=== PATIENT | female | born 1960 | race African-American/Black ===

== ENCOUNTER 2016-11-23 07:54 | Emergency (ER) | payer MEDICARE, MEDICAID ==
[2016-11-23 09:04] LABS: ALT (SGPT) 10 U/L (0-55); AST (SGOT) 15 U/L (5-34); Alkaline Phosphatase 92 U/L (40-150); Anion Gap 16 mmol/L (10-20); BUN (Urea Nitrogen) 7 mg/dL (9.8-20.1); Bilirubin, Total 0.3 mg/dL (0.2-1.2); CK (CPK) 72 U/L (29-168); Calc. Creatinine Clearance 0 mL/min (70-130); Carbon Dioxide 23 mmol/L (22-29); Chloride 105 mmol/L (98-107); Estimated GFR-MDRD Greater than 90; Protein, Total 6.7 g/dL (6.0-8.3)
[2016-11-23 09:05] LABS: Hematocrit 45.3 % (36.0-47.0); Mean Platelet Volume 6.1 fL (7.4-10.4); Red Blood Cell (RBC) Count 5.02 mill/uL (4.20-5.40); White Blood Cell (WBC) Count 8.7 thou/uL (4.8-10.8)
--- NOTE | 2016-11-23 09:05 | RAD ---
PA CHEST WITH 3 VIEWS OF RIGHT CHEST WALL: Date: 11/23/16 INDICATION: Right-sided rib pain without injury earlier this morning. FINDINGS: The lungs are clear. No pleural effusion or pneumothorax is evident. No displaced right-sided rib fr acture is evident. IMPRESSION: No displaced right-sided rib fracture. POS: [facility]
[2016-11-23 09:06] LABS: Troponin I Less than 0.010 ng/mL (< 0.028)
[2016-11-23 09:10] LABS: Neutrophil 56 % (42-75); Reactive Lymphocytes 4 % (0-10)
[2016-11-23] MEDS ORDERED: Morphine Sulfate 2 MG/ML SYRINGE ONE (09:40)
[2016-11-23 09:41] LABS: Methamphetamine Not Detected (NotDetected)
[2016-11-23] MEDS ORDERED: Enoxaparin Sodium 80 MG/0.8 ML SYRINGE ONE (09:41)
[2016-11-23 09:42] LABS: Methadone Not Detected (NotDetected)
--- NOTE | 2016-11-23 09:51 | ERRECORD ---
[facility] EMERGENCY RECORD HPI CHEST PAIN CHIEF COMPLAINT: Patient presents for evaluation of chest pain, ongoing, Patient presents for evaluation of Pt with right sided chest and back pain. Started yesterday morning and progressively worse since. Hurts to move, take deep breaths, or palpation. Pt is crying in the room as she talks about the pain. She reports being unable to sleep due to the pain when she lies on her side or back. No injury. 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 Missed her last 2 days of xaralto. (08:43 JLOY) HISTORIAN: History provided by patient. (08:43 JLOY) LOCATION: Symptoms are localized, most severe in the right lower chest. (08:43 JLOY) QUALITY: Pain is dull in nature. (08:43 JLOY) TIME COURSE: Symptoms are worsening, are constant. (08:43 JLOY) ASSOCIATED WITH: No associated chills, No associated cough, No associated diaphoresis, No associated fever, No associated nausea, No associated palpitations, No associated shortness of breath, No associated trauma, No associated upper respiratory infection, No associated vomiting. (08:43 JLOY) RELIEVED BY: Patient's condition relieved by nothing. (08:43 JLOY) RISK FACTORS: Pulmonary embolism risk factors, include coagulation disorder, include prior deep vein thrombosis, include prior pulmonary embolism. (08:46 JLOY) ROS (08:47 JLOY) CONSTITUTIONAL: Historian denies chills, denies fever. ENT: Historian denies rhinorrhea, denies sore throat. CARDIOVASCULAR: Historian reports chest pain, denies diaphoresis, denies palpitations. RESPIRATORY: Historian denies cough, denies shortness of breath. GI: Historian denies abdominal pain, denies nausea, denies vomiting. Chronic diarrhea unchanged. GENITOURINARY FEMALE: Historian denies dysuria, denies frequency, denies hematuria. MUSCULOSKELETAL: Historian reports back pain. SKIN: Historian denies rash, denies skin changes. NEUROLOGIC: Historian reports dizziness, denies headache. PAST MEDICAL HISTORY MEDICAL HISTORY: Notes: 29 PE's per pt...LAST CLOT 3 YEARS AGO.... (08:13 [facility]) FEMALE SURGICAL HISTORY: ovarian cyst removed. (08:13 [facility]) PSYCHIATRIC HISTORY: No previous psychiatric history. (08:13 [facility]) &a-1R&a+25V*p+0X*[id number]*c202B*c15G*c2P*p-0X&a-25V&a+1R Name: Tia Sanchez : 1960 F56 MedRec: [id number] AcctNum: [id number] Prepared: WedNov 23, 2016 10:33 by Interface Page [address] [facility] EMERGENCY RECORD SOCIAL HISTORY: Social History includes lives with mom, Patient denies alcohol use, Patient denies drug use, Patient currently uses tobacco, smokes cigarettes, Patient smokes 1/2 packs per day. (08:13 [facility]) NOTES: Nursing records reviewed, Agree with nursing records. (08:49 [facility]) KNOWN ALLERGIES iodine CURRENT MEDICATIONS Xarelto: TABLET : Strength - 20 mg : ORAL Patient Dose: once a day. (08: [facility]) Ambien: TABLET : Strength - 10 mg : ORAL Patient Dose: once a day. (08: [facility]) atorvastatin: TABLET : Strength - 10 mg : ORAL Patient Dose: once a day (at bedtime). (08:27 [facility]) NexIUM: CAPSULE,DELAYED RELEASE (ENTERIC COATED) : Strength - 40 mg : ORAL Patient Dose: once a day. (08:27 [facility]) Xifaxan: TABLET : Strength - 200 mg : ORAL Patient Dose: 3 times a day. (08:27 [facility]) VITAL SIGNS VITAL SIGNS: BP: 162/100, Pulse: 74, Resp: 19, Temp: 98.2 (Oral), Pain: 10, O2 sat: 100 on Room Air, Time: 11/23/2016 08:06. (08:06 [facility]) BP: 133/93, Pulse: 69, Resp: 17, Pain: 9, O2 sat: 100 on RA, Time: 11/23/2016 09:39. (09:39 [facility]) BP: 123/82, Pulse: 63, Resp: 17, Temp: 98.4 (Oral), Pain: 5, O2 sat: 100 on Room Air, Time: 11/23/2016 10:00. (10:00 [facility]) BP: 140/71, Pulse: 59, Resp: 17, Pain: 10, O2 sat: 100 on Room Air, Time: 11/23/2016 09:00. (09:00 [facility]) BP: 109/83, Pulse: 62, Resp: 18, Pain: 10, O2 sat: 100 on Room Air, Time: 11/23/2016 08:56. (08:56 [facility]) PHYSICAL EXAM (08:47 [facility]) CONSTITUTIONAL: Vital Signs Reviewed, Patient appears non toxic, Patient alert and oriented to person, place and time, Crying, tearful. EYES: Eye exam included findings of eyelids normal to inspection, Pupils equally round and reactive to light, Conjunctiva normal. ENT: Pharynx exam normal, Uvula exam normal, Tonsil exam normal, Mouth exam normal, mucous membranes moist. NECK: Neck exam included findings of normal range of motion, Trachea midline, no cervical adenopathy. RESPIRATORY CHEST: Respiratory exam included findings of no &a-1R&a+25V*p+0X*[id number]*c202B*c15G*c2P*p-0X&a-25V&a+1R Name: Tia Sanchez : 1960 F56 MedRec: [id number] AcctNum: [id number] Prepared: WedNov 23, 2016 10:33 by Interface Page [address] [facility] EMERGENCY RECORD respiratory distress, Breath sounds clear, No wheezing, No rales, No rhonchi, Chest exam included findings of chest movement symmetrical, Tenderness, severe, to the right anterior chest, to the right posterior chest, Palpation of chest reproduces symptoms, Pt cries when examined. No deformity, bruising, or crepitus. CARDIOVASCULAR: Heart rate regular rate and rhythm, Heart sounds normal. ABDOMEN FEMALE: Abdominal exam included findings of abdomen nontender, Bowel sounds normal. BACK: Back exam included findings of normal inspection, range of motion normal. UPPER EXTREMITY: Upper extremity exam included findings of inspection normal, Radial pulse normal, no cyanosis, no clubbing, no edema. LOWER EXTREMITY: Lower extremity exam included findings of inspection normal, Pedal pulse normal, Edema present, to the left lower extremity, non-pitting, Left calf mildly enlarged compared to right. Per patient old from previous DVTs but some worsening last few days., no calf tenderness. NEURO: [place] coma scale 15, Neuro exam findings include patient oriented to person, place and time, Speech normal. SKIN: Skin exam included findings of skin warm, dry, and normal in color, no rash. PSYCHIATRIC: Affect, tearful. MEDICATION ADMINISTRATION SUMMARY Drug Name: Lovenox, Dose Ordered: 1 mg/kg, Route: Subcutaneous, Status: Given, Time: 09:47 11/23/2016, Drug Name: morphine injection, Dose Ordered: 2 mg, Route: IV Push, Status: Given, Time: 09:45 11/23/2016, Drug Name: morphine injection, Dose Ordered: 4 mg, Route: IV Push, Status: Given, Time: 08:43 11/23/2016, Detailed record available in Medication Service section. DOCTOR NOTES (:35 [facility]) TEXT: Dr. Guzman accepted the transfer to [facility]. PROBLEM LIST No recorded problems DIAGNOSIS (:35 [facility]) FINAL: PRIMARY: CHEST PAIN ON BREATHING. PRESCRIPTION No recorded prescriptions DISPOSITION PATIENT: Disposition Type: Transfer, Disposition: Transfer to &a-1R&a+25V*p+0X*[id number]*c202B*c15G*c2P*p-0X&a-25V&a+1R Name: Tia Sanchez : 1960 MedRec: [id number] AcctNum: [id number] Prepared: WedNov 23, 2016 10:33 by Interface Page [address] [facility] EMERGENCY RECORD [facility]. (09:35 [facility]) Patient left the department. (10:29 MAHAD) Lopez: MAHAD=KALIE Craven, Thalia CASAS=MD Dylan, Jenaro [facility]=KALIE Watts, Adela &a-1R&a+25V*p+0X*[id number]*c202B*c15G*c2P*p-0X&a-25V&a+1R Name: Tia Sanchez : 1960 F56 MedRec: [id number] AcctNum: [id number] Prepared: WedNov 23, 2016 10:33 by Interface Page 4 of 4 pMD [facility]TDD
--- NOTE | 2016-11-23 09:54 | PICIS ---
[facility] EMERGENCY RECORD TRIAGE (08:05 [facility]) TRIAGE NOTES: Pt with CP right side and increases with breathing; radiates to back. (08:05 [facility]) PATIENT: NAME: Tia Sanchez, AGE: 56, GENDER: female, : Sat 1960, TIME OF GREET: WedNov 23, 2016 07:55, PREFERRED LANGUAGE: Amharic, ETHNICITY: Not or , ECODE BILLING MAP: [facility], SSN: [id number], Zip Code: [address], KG WEIGHT: 68.95, PHONE: , , , PERSON ID: [id number], PCP: Itzel DRIVER POLLACHI. (08:05 [facility]) COMPLAINT: BACK PAIN. (08:05 [facility]) ADMISSION: URGENCY: 2 Emergent, ADMISSION SOURCE: Home, TRANSPORT: CAR, BED: TRIAGE. (08:05 [facility]) ASSESSMENT: Assessment: Pt with CP getting worse, Symptoms began 2300 last night. (08:13 [facility]) PAIN: Patient complains of pain described as, sharp, stabbing, on a scale 0-10 patient rates pain as 10, Location right chest, Pain is constant. (08:13 [facility]) IMMUNIZATIONS: Flu vaccine not up to date, Pneumococcal vaccine not up to date. (08:13 [facility]) SIRS SCORING: Heart Rate 110-139 (2), Temp range 96.8-101.1 (0), respiratory rate 12-24 (0), Mental Status altered: no (0). (08:13 [facility]) TRIAGE SCREENING: Patient denies suicidal ideation, Patient denies presence of domestic violence. (08:13 [facility]) LMP: LMP: Menopause. 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 (08:13 [facility]) PROVIDERS: TRIAGE NURSE: Adela Watts RN. (08:05 [facility]) KNOWN ALLERGIES iodine CURRENT MEDICATIONS Xarelto: TABLET : Strength - 20 mg : ORAL Patient Dose: once a day. (08:26 [facility]) Ambien: TABLET : Strength - 10 mg : ORAL Patient Dose: once a day. (08: [facility]) atorvastatin: TABLET : Strength - 10 mg : ORAL Patient Dose: once a day (at bedtime). (: [facility]) NexIUM: CAPSULE,DELAYED RELEASE (ENTERIC COATED) : Strength - 40 mg : ORAL Patient Dose: once a day. (08: [facility]) Xifaxan: TABLET : Strength - 200 mg : ORAL Patient Dose: 3 times a day. (08: [facility]) &a-1R&a+25V*p+0X*z5852J*c202B*c15G*c2P*p-0X&a-25V&a+1R Name: Tia Sanchez : 1960 F56 MedRec: [id number] AcctNum: [id number] Prepared: WedNov 23, 2016 10:39 by Interface Page 1 of 9 pMD [facility] EMERGENCY RECORD VITAL SIGNS VITAL SIGNS: BP: 162/100, Pulse: 74, Resp: 19, Temp: 98.2 (Oral), Pain: 10, O2 sat: 100 on Room Air, Time: 11/23/2016 08:06. (08:06 [facility]) BP: 133/93, Pulse: 69, Resp: 17, Pain: 9, O2 sat: 100 on RA, Time: 11/23/2016 09:39. (09:39 [facility]) BP: 123/82, Pulse: 63, Resp: 17, Temp: 98.4 (Oral), Pain: 5, O2 sat: 100 on Room Air, Time: 11/23/2016 10:00. (10:00 [facility]) BP: 140/71, Pulse: 59, Resp: 17, Pain: 10, O2 sat: 100 on Room Air, Time: 11/23/2016 09:00. (09:00 [facility]) BP: 109/83, Pulse: 62, Resp: 18, Pain: 10, O2 sat: 100 on Room Air, Time: 11/23/2016 08:56. (08:56 [facility]) NURSING ASSESSMENT: HEAD-TO-TOE (08:08 [facility]) CONSTITUTIONAL: Patient arrives ambulatory, Gait steady, History obtained from patient, Patient appears comfortable, Patient cooperative, Patient alert, Oriented to person, place and time, Skin warm, Skin dry, Skin normal in color, Mucous membranes pink, Mucous membranes moist, Patient is well-groomed, Patient complains of Chest pain, Pt in room in bed in gown. Assess. Plan of care of pt in Er discussed. PAIN: sharp pain, stabbing pain, right sided chest pain, Onset of pain 2300, constant, on a scale 0-10 patient rates pain as 10. SKIN: Skin assessment findings include skin warm, Skin dry, Skin normal in color, Notes: intact. RESPIRATORY/CHEST: Respiratory assessment findings include respiratory effort easy, no associated cough noted, no associated fever. CARDIOVASCULAR: Cardiovascular assessment findings include heart rate normal. ABDOMEN: Abdomen assessment findings include abdomen symmetrical, no associated nausea, no associated vomiting, no associated diarrhea, no associated constipation. GENITOURINARY FEMALE: no associated urinary complaints. NOTES: Emotional support needed and given, Patient tolerated procedure well. SAFETY: Side rails up, Cart/Stretcher in lowest position, Call light within reach, Hospital ID band on. NURSING PROCEDURE: COLOR MAKER (08:18 [facility]) COLOR MAKER: Cardiac monitoring indicated for complaint of chest pain, Patient placed on hot mill operator, Patient placed on non-invasive blood pressure monitor, Patient placed on continuous pulse oximetry. FOLLOW-UP: After procedure, alarms set and on, After procedure, patient tolerating monitoring. SAFETY: Side rails up, Cart/Stretcher in lowest position, Call light within reach, Hospital ID band on. &a-1R&a+25V*p+0X*a3492M*c202B*c15G*c2P*p-0X&a-25V&a+1R Name: Tia Sanchez : 1960 F56 MedRec: [id number] AcctNum: [id number] Prepared: WedNov 23, 2016 10:39 by Interface Page 2 of 9 pMD [facility] EMERGENCY RECORD NURSING PROCEDURE: EKG CHART (:08 [facility]) EKG: EKG indicated for complaint of chest pain. FOLLOW-UP: After procedure, EKG for interpretation given to Dr. Richardson. SAFETY: Side rails up, Cart/Stretcher in lowest position, Call light within reach, Hospital ID band on. NURSING PROCEDURE: IV (08:34 [facility]) IV SITE 1: IV established, to the left forearm, using a 20 gauge catheter, in three attempts, IV site prepped with chloraprep, Saline lock established, Flushed with normal saline (mls): 10, Labs drawn at time of placement, labeled in the presence of the patient and sent to lab, Notes: DAVID established by KALIE No with use of IV catheter and start kit. SL established with no swelling, drainage, or redness. Secured with clear Tegaderm. SAFETY: Side rails up, Cart/Stretcher in lowest position, Call light within reach, Hospital ID band on. NURSING PROCEDURE: NURSE NOTES NURSES NOTES: Notes: All charting/assessment done by Marybel Craven with Adela Rich Rn signed in on computer. (08:17 [facility]) Notes: EKG done on arrival by Adela Jade. (08:10 [place]) Notes: Er Dr at bedside; Pt now states she has had CP since yesterday a.m. AND pt has not taken Xeralto med for last 2 days. Pt history verbalized to ER DR. (08:21 IA) Notes: Pt to [facility] via wheelchair. (08:44 IA) Notes: Pt back to room; to bed and back on all bedside hot mill operator. (08:52 IA) Notes: Pt states CP was a 20/10 now a 10/10. Rest encouraged. Call light given to pt.,. (08:55 GHIA) Patient assisted to bathroom with steady gait. (09:05 IA) Notes: Pt back in room. Pt connected to all bedside hot mill operator. (09:10 IA) Notes: Er Dr at bedside. (09:19 IA) Notes: VOv from Dr Richardson...pt to be transferred...House Sup paged overhead. (09:19 IA) Notes: House sup Aleksandra here to begin transfer papers. (09:28 GHIA) Patient states decreased pain, Assistance offered to patient, Patient is awaiting disposition, Notes: Pt still tearful with pain. Pt notifed of plans to transfer pt and pt agrees. (09:39 [facility]) Patient in no apparent distress, Assistance offered to patient, Patient is awaiting disposition, Notes: Pt on phone notifying her mom of pending transfer and asking her mom to have her/pts car picked up from ER parking lot,. (09:48 [facility]) Notes: Pts belongings bagged per pt request and all pts braclets placed in pts purse by pt. (09:50 [facility]) Notes: I gave second dose of morphine and lovenox on computer Adela had sihned in on. (09:59 [facility]) Notes: Visitor at bedside; attentive to pt. (10:20 IA) &a-1R&a+25V*p+0X*g5064R*c202B*c15G*c2P*p-0X&a-25V&a+1R Name: Tia Sanchez : 1960 F56 MedRec: [id number] AcctNum: [id number] Prepared: WedNov 23, 2016 10:39 by Interface Page 3 of 9 pMD [facility] EMERGENCY RECORD Patient in no apparent distress, Assistance offered to patient, Notes: EMS here to transport pt. Report given to Elijah, EMS staff. (10:25 IA) VITAL SIGNS: BP: 133, / 93, Pulse: 69, Resp: 17, Pain: 9, O2 sat: 100, on: RA. (09:39 [facility]) NURSING PROCEDURE: TRANSFER (10:18 IA) TRANSFER: Reason for transfer need for specialized care, Transported by urgent ambulance, Report called to receiving facility, Sofiya JADE, Provided opportunity to answer questions. BELONGINGS: Belongings remain with patient, Valuables remain with patient. VITAL SIGNS: Time: 98.4Po. ORDER DETAILS Order Name: COLOR MAKER ED, Status: Done, Time: 08:25 11/23/2016, User: [facility], - Ordered for: MD Richardson Joshua, - Entered by: MD Richardson Joshua - [facility] Nov 23, 2016 08:24, - Quantity: 1, Order Name: Cardiac Profile w/CKMB & Troponin - I, Status: Active, Time: 08:24 11/23/2016, User: [facility], - Ordered for: MD Richardson Joshua, - Entered by: MD Richardson Joshua - [facility] Nov 23, 2016 08:24, - Quantity: 1, Order Name: CBC with Differential, Status: Active, Time: 08:24 11/23/2016, User: [facility], - Ordered for: MD Richardson Joshua, - Entered by: MD Richardson Joshua - Mon Nov 23, 2016 08:24, - Quantity: 1, Order Name: CK (CPK), Status: Active, Time: 08:24 11/23/2016, User: [facility], - Ordered for: MD Richardson Joshua, - Entered by: MD Richardson Joshua - Elise Nov 23, 2016 08:24, - Quantity: 1, Order Name: Comprehensive Metabolic Panel, Status: Active, Time: 08:24 11/23/2016, User: [facility], - Ordered for: MD Richardson Joshua, - Entered by: MD Richardson Joshua - Mon Nov 23, 2016 08:24, - Quantity: 1, Order Name: D-Dimer (Quantitative), Status: Active, Time: 08:25 11/23/2016, User: [facility]ESS[facility]IA, - Ordered for: MD Richardson Joshua, - Entered by: MD Richardson Joshua - [facility] Nov 23, 2016 08:25, - Quantity: 1, Order Name: Drug Screen, Urine, Status: Active, Time: 08:31 11/23/2016, User: [facility]ESS[facility]IA, - Ordered for: MD Richardson Joshua, - Entered by: MD Richardson Joshua - [facility] Nov 23, 2016 08:31, &a-1R&a+25V*p+0X*t6102Z*c202B*c15G*c2P*p-0X&a-25V&a+1R Name: Tia Sanchez Aleena : 1960 F56 MedRec: [id number] AcctNum: [id number] Prepared: WedNov 23, 2016 10:39 by Interface Page 4 of 9 D [facility] EMERGENCY RECORD - Quantity: 1, Order Name: EKG 12 Lead in Emergency Room, Status: Active, Time: 08:24 11/23/2016, User: [facility], - Ordered for: MD Richardson Joshua, - Entered by: MD Richardson Joshua - [facility] Nov 23, 2016 08:24, - Quantity: 1, Order Name: SALINE LOCK, Status: Done, Time: 08:34 11/23/2016, User: [facility], - Ordered for: MD Richardson Joshua, - Entered by: MD Richardson Joshua - [facility] Nov 23, 2016 08:24, - Quantity: 1, Order Name: XR Ribs Rt>= 2 View W/PA CXR, Status: Active, Time: 08:24 11/23/2016, User: [facility], - Ordered for: MD Richardson Joshua, - Entered by: MD Richardson Joshua - [facility] Nov 23, 2016 08:24, - Quantity: 1. MEDICATION ADMINISTRATION SUMMARY Drug Name: Lovenox, Dose Ordered: 1 mg/kg, Route: Subcutaneous, Status: Given, Time: 09:47 11/23/2016, Drug Name: morphine injection, Dose Ordered: 2 mg, Route: IV Push, Status: Given, Time: 09:45 11/23/2016, Drug Name: morphine injection, Dose Ordered: 4 mg, Route: IV Push, Status: Given, Time: 08:43 11/23/2016, Detailed record available in Medication Service section. MEDICATION SERVICE Lovenox: Order: Lovenox (enoxaparin sodium) - Dose: 1 mg/kg : Subcutaneous POTENTIAL SEVERE INTERACTION: Xarelto - Patient no longer on medication, Missed the past few days worth Ordered by: Jenaro Richardson MD Entered by: Jenaro Richardson MD WedNov 23, 2016 09:15 , Acknowledged by: Adela Watts RN WedNov 23, 2016 09:38, Co-signed by: Adela Watts RN WedNov 23, 2016 09:43. Lovenox: Order: Lovenox (enoxaparin sodium) - Dose: 1 mg/kg : Subcutaneous POTENTIAL SEVERE INTERACTION: Xarelto - Patient no longer on medication, Missed the past few days worth Ordered by: Jenaro Richardson MD Entered by: Jenaro Richardson MD WedNov 23, 2016 09:15 , Acknowledged by: Adela Watts RN WedNov 23, 2016 09:38 Documented as given by: Adela Watts RN WedNov 23, 2016 09:47 Patient, Medication, Dose, Route and Time verified prior to administration. Amount given: 70 mg, Amount wasted: 10 mg, Medication administered to left abdomen, Correct patient, time, route, dose and medication confirmed prior to administration, Patient advised of actions and side-effects prior to administration, Allergies confirmed and &a-1R&a+25V*p+0X*p0246O*c202B*c15G*c2P*p-0X&a-25V&a+1R Name: Tia Sanchez : 1960 F56 MedRec: [id number] AcctNum: [id number] Prepared: WedNov 23, 2016 10:39 by Interface Page 5 of 9 pMD [facility] EMERGENCY RECORD medications reviewed prior to administration, Emotional support needed and given, Patient tolerated procedure well, Advised not to ambulate without assistance, Patient in position of comfort, Side rails up, Cart in lowest position, Call light in reach, dose checked with Adela Jade prior to given. Pt states she has had this med before without any difficulties. morphine injection: Order: morphine injection (morphine sulfate) - Dose: 4 mg : IV Push Ordered by: Jenaro Richardson MD Entered by: Jenaro Richardson MD WedNov 23, 2016 08:31 , Acknowledged by: Adela Watts RN WedNov 23, 2016 08:35 Documented as given by: Thalia Craven RN WedNov 23, 2016 08:43 Patient, Medication, Dose, Route and Time verified prior to administration. Amount given: 4 mg, Amount wasted: 0, IV SITE #1 IVP, initial medication, Slowly, Awake and alert- acceptable, Catheter placement confirmed via flush prior to administration, IV site without signs or symptoms of infiltration during medication administration, No swelling during administration, No drainage during administration, IV flushed after administration, Correct patient, time, route, dose and medication confirmed prior to administration, Patient advised of actions and side-effects prior to administration, Allergies confirmed and medications reviewed prior to administration, Emotional support needed and given, Patient tolerated procedure well, Patient in position of comfort, Side rails up, Cart in lowest position, Call light in reach. morphine injection: Order: morphine injection (morphine sulfate) - Dose: 2 mg : IV Push Ordered by: Jenaro Richardson MD Entered by: Jenaro Richardson MD WedNov 23, 2016 09:15 , Acknowledged by: Adela Watts RN WedNov 23, 2016 09:38 Documented as given by: Adela Watts RN WedNov 23, 2016 09:45 Patient, Medication, Dose, Route and Time verified prior to administration. Amount given: 2 mg, Amount wasted: 0, IV SITE #1 IVP, subsequent different medication, Slowly, Awake and alert- acceptable, Catheter placement confirmed via flush prior to administration, IV site without signs or symptoms of infiltration during medication administration, No swelling during administration, No drainage during administration, IV flushed after administration, Correct patient, time, route, dose and medication confirmed prior to administration, Patient advised of actions and side-effects prior to administration, Allergies confirmed and medications reviewed prior to administration, Emotional support needed and given, Patient tolerated procedure well, Patient in position of comfort, Side rails up, Cart in lowest position, Call light in reach. HPI CHEST PAIN CHIEF COMPLAINT: Patient presents for evaluation of chest pain, ongoing, Patient presents for evaluation of &a-1R&a+25V*p+0X*n1886M*c202B*c15G*c2P*p-0X&a-25V&a+1R Name: Tia Sanchez : 1960 F56 MedRec: [id number] AcctNum: [id number] Prepared: WedNov 23, 2016 10:39 by Interface Page 6 of 9 pMD [facility] EMERGENCY RECORD Pt with right sided chest and back pain. Started yesterday morning and progressively worse since. Hurts to move, take deep breaths, or palpation. Pt is crying in the room as she talks about the pain. She reports being unable to sleep due to the pain when she lies on her side or back. No injury. 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 Missed her last 2 days of xaralto. (08:43 JLOY) HISTORIAN: History provided by patient. (08:43 JLOY) LOCATION: Symptoms are localized, most severe in the right lower chest. (08:43 JLOY) QUALITY: Pain is dull in nature. (08:43 JLOY) TIME COURSE: Symptoms are worsening, are constant. (08:43 JLOY) ASSOCIATED WITH: No associated chills, No associated cough, No associated diaphoresis, No associated fever, No associated nausea, No associated palpitations, No associated shortness of breath, No associated trauma, No associated upper respiratory infection, No associated vomiting. (08:43 JLOY) RELIEVED BY: Patient's condition relieved by nothing. (08:43 JLOY) RISK FACTORS: Pulmonary embolism risk factors, include coagulation disorder, include prior deep vein thrombosis, include prior pulmonary embolism. (08:46 JLOY) ROS (08:47 JLOY) CONSTITUTIONAL: Historian denies chills, denies fever. ENT: Historian denies rhinorrhea, denies sore throat. CARDIOVASCULAR: Historian reports chest pain, denies diaphoresis, denies palpitations. RESPIRATORY: Historian denies cough, denies shortness of breath. GI: Historian denies abdominal pain, denies nausea, denies vomiting. Chronic diarrhea unchanged. GENITOURINARY FEMALE: Historian denies dysuria, denies frequency, denies hematuria. MUSCULOSKELETAL: Historian reports back pain. SKIN: Historian denies rash, denies skin changes. NEUROLOGIC: Historian reports dizziness, denies headache. PAST MEDICAL HISTORY MEDICAL HISTORY: Notes: 29 PE's per pt...LAST CLOT 3 YEARS AGO.... (08:13 [facility]) FEMALE SURGICAL HISTORY: ovarian cyst removed. (08:13 [facility]) PSYCHIATRIC HISTORY: No previous psychiatric history. (08:13 [facility]) SOCIAL HISTORY: Social History includes lives with mom, Patient denies alcohol use, Patient denies drug use, Patient currently uses tobacco, smokes cigarettes, Patient smokes &a-1R&a+25V*p+0X*d8340N*c202B*c15G*c2P*p-0X&a-25V&a+1R Name: Tia Sanchez : 1960 F56 MedRec: [id number] AcctNum: [id number] Prepared: WedNov 23, 2016 10:39 by Interface Page 7 of 9 pMD [facility] EMERGENCY RECORD 1/2 packs per day. (08:13 [facility]) NOTES: Nursing records reviewed, Agree with nursing records. (08:49 JLOY) PHYSICAL EXAM (08:47 [facility]) CONSTITUTIONAL: Vital Signs Reviewed, Patient appears non toxic, Patient alert and oriented to person, place and time, Crying, tearful. EYES: Eye exam included findings of eyelids normal to inspection, Pupils equally round and reactive to light, Conjunctiva normal. ENT: Pharynx exam normal, Uvula exam normal, Tonsil exam normal, Mouth exam normal, mucous membranes moist. NECK: Neck exam included findings of normal range of motion, Trachea midline, no cervical adenopathy. RESPIRATORY CHEST: Respiratory exam included findings of no respiratory distress, Breath sounds clear, No wheezing, No rales, No rhonchi, Chest exam included findings of chest movement symmetrical, Tenderness, severe, to the right anterior chest, to the right posterior chest, Palpation of chest reproduces symptoms, Pt cries when examined. No deformity, bruising, or crepitus. CARDIOVASCULAR: Heart rate regular rate and rhythm, Heart sounds normal. ABDOMEN FEMALE: Abdominal exam included findings of abdomen nontender, Bowel sounds normal. BACK: Back exam included findings of normal inspection, range of motion normal. UPPER EXTREMITY: Upper extremity exam included findings of inspection normal, Radial pulse normal, no cyanosis, no clubbing, no edema. LOWER EXTREMITY: Lower extremity exam included findings of inspection normal, Pedal pulse normal, Edema present, to the left lower extremity, non-pitting, Left calf mildly enlarged compared to right. Per patient old from previous DVTs but some worsening last few days., no calf tenderness. NEURO: Alida coma scale 15, Neuro exam findings include patient oriented to person, place and time, Speech normal. SKIN: Skin exam included findings of skin warm, dry, and normal in color, no rash. PSYCHIATRIC: Affect, tearful. EVENTS TRANSFER: Triage to Emergency Triage. (WedNov 23, 2016 08:05 [facility]) Emergency Triage to Emergency Room -02. (08:29 [facility]) Removed from Emergency Emergency Room -02. (10:29 [facility]) DOCTOR NOTES (09:35 [facility]) TEXT: Dr. Guzman accepted the transfer to [facility] ER. &a-1R&a+25V*p+0X*u0017X*c202B*c15G*c2P*p-0X&a-25V&a+1R Name: Laura Tia L : 1960 F56 MedRec: [id number] AcctNum: [id number] Prepared: WedNov 23, 2016 10:39 by Interface Page 8 of 9 pMD [facility] EMERGENCY RECORD PROBLEM LIST No recorded problems DIAGNOSIS (09:35 JLOY) FINAL: PRIMARY: CHEST PAIN ON BREATHING. DISPOSITION PATIENT: Disposition Type: Transfer, Disposition: Transfer to [facility]. (09:35 JLOY) Patient left the department. (10:29 [facility]IA) PRESCRIPTION No recorded prescriptions IMAGING *MEMORANDUM OF TRANSFER: Image captured from scanner. (09:43 REZE) CONSENTS: Image captured from scanner. (09:43 REZE) *EKG: Image captured from scanner. (09:44 REZE) *SUPPLY CHARGE SHEET: Image captured from scanner. (10:34 RE[facility]) ADMIN DIGITAL SIGNATURE: MD Richardson Joshua. (09:35 JLOY) MD Richardson Joshua. (09:36 JLOY) Lopez: MAHAD=KALIE Craven, Thalia JLOY=MD Richardson Joshua REZE=KALIE Jimenez, Aleksandra [facility]=KALIE Watts, Adela &a-1R&a+25V*p+0X*p1382T*c202B*c15G*c2P*p-0X&a-25V&a+1R Name: Tia Sanchez : 1960 F56 MedRec: [id number] AcctNum: [id number] Prepared: WedNov 23, 2016 10:39 by Interface Page 9 of 9 pMD [facility]
== END 2016-11-23 10:18 | disposition short-term general hospital (02) ==
LOC: NAV ERS 07:54
DX: R07.9 Chest pain, unspecified (principal); F17.210 Nicotine dependence, cigarettes, uncomplicated; Z79.01 Long term (current) use of anticoagulants; Z79.899 Other long term (current) drug therapy
CPT/HCPCS: 36415; 80053; 80306; 82553; 84484; 85025; 85379; 93005; 96372; 96374; J1650; J2270

== ENCOUNTER 2017-02-13 10:47 | Emergency (ER) | payer MEDICARE, MEDICAID | END 2017-02-13 11:20 | disposition home or self-care (01) | LOC: NAV ERS 10:47 | DX: S40.861A Insect bite (nonvenomous) of right upper arm, initial encounter (principal); F17.210 Nicotine dependence, cigarettes, uncomplicated; Z79.899 Other long term (current) drug therapy; W57.XXXA Bitten or stung by nonvenomous insect and other nonvenomous arthropods, initial encounter | CPT/HCPCS: 99282 ==

== ENCOUNTER 2017-02-21 15:00 | Emergency (ER) | payer MEDICARE, MEDICAID ==
[2017-02-21] MEDS ORDERED: Dexamethasone 4 mg/ml Vial ONE (15:25)
[2017-02-21] MEDS ORDERED: methylPREDNISolone Acetate 40 mg/ml Vial ONE (15:27)
== END 2017-02-21 15:37 | disposition home or self-care (01) ==
LOC: NAV ERS 15:00
DX: T63.441A Toxic effect of venom of bees, accidental (unintentional), initial encounter (principal); F17.210 Nicotine dependence, cigarettes, uncomplicated; Z79.899 Other long term (current) drug therapy
CPT/HCPCS: 96372; J1030; J1100